=== PATIENT | male | born 1950 | race Hispanic/Latino ===

== ENCOUNTER 2019-04-21 17:07 | Emergency (ER) | payer OTHER, SELFPAY ==
[2019-04-21 18:26] VITALS: BMI 25.7
[2019-04-21] MEDS ORDERED: TDAP Vaccine 0.5 mL Syr IM ONE (18:52)
--- NOTE | 2019-04-21 18:58 | ED PDOC ---
Arrival/HPI - General Historian: Patient - History of Present Illness Narrative History of Present Illness (Text): 18:58 68 y/o male with PMH of HTN presents to the ED for evaluation of fall that occurred 2 hours ago. Pt states he was tripped by neighborhood kids playing street hockey, falling forward on to his face. Pt broke his fall with his outstretched hands. Denies LOC but sustained laceration to left superior orbit and experienced immediate epistaxis. Currently c/o headache. Unknown last tetanus. Pt took 2 Alieve UI ARCHITECT. Denies extremity numbness, weakness, paresthesias, back pain, neck pain, abdominal pain, SOB, palpitations, saddle anesthesia, bowel/bladder incontinence, visual changes, dizziness, or any other associated symptoms. <Patricia Hamilton - Last Filed: 04/23/19 23:56> <Lamin Joaquin - Last Filed: 04/27/19 13:49> - General Chief Complaint: Trauma Time Seen by Provider: 04/21/19 18:30 Past Medical History - Provider Review Nursing Documentation Reviewed: Yes - Cardiac Hx Hypertension: Yes - Psychiatric Hx Substance Use: No - Anesthesia Hx Anesthesia: No <Patricia Hamilton - Last Filed: 04/23/19 23:56> Family/Social History - Physician Review Nursing Documentation Reviewed: Yes Family/Social History: No Known Family HX Smoking Status: Never Smoked Hx Alcohol Use: No Hx Substance Use: No <Patricia Hamilton - Last Filed: 04/23/19 23:56> Allergies/Home Meds <Patricia Hamilton - Last Filed: 04/23/19 23:56> <Lamin Joaquin - Last Filed: 04/27/19 13:49> Allergies/Adverse Reactions: Allergies No Known Allergies Allergy (Verified 04/21/19 18:26) Physical Exam Vital Signs Reviewed: Yes Temperature: Afebrile Blood Pressure: Normal Pulse: Regular Respiratory Rate: Normal Appearance: Positive for: Well-Appearing, Non-Toxic, Comfortable Pain Distress: None Mental Status: Positive for: Alert and Oriented X 3 - Systems Exam Head: Present: Normocephalic, Laceration (4cm laceration to left superior orbit, no eye involvement, active bleeding, no eye involvement) Pupils: Present: PERRL Extroacular Muscles: Present: EOMI Conjunctiva: Present: Normal Mouth: Present: Moist Mucous Membranes Nose (External): Present: Abrasion (bridge of nose) Nose (Internal): Present: No Active Bleeding, Other (dried blood bilateral nares). No: Septal Hematoma Neck: Present: Normal Range of Motion Respiratory/Chest: Present: Clear to Auscultation, Good Air Exchange, Tender to Palpation (sternum, left anterior ribs). No: Respiratory Distress, Accessory Muscle Use Cardiovascular: Present: Regular Rate and Rhythm, Normal S1, S2 Abdomen: No: Tenderness, Peritoneal Signs Back: Present: Normal Inspection Upper Extremity: Present: Normal ROM, NORMAL PULSES, Tenderness (bilateral dorsal wrists; no snuffbox tenderness), Neurovascularly Intact, Capillary Refill < 2s, Other (ecchymosis to bilateral dorsal wrists and proximal palms). No: Temperature Abnormalties, Deformity Lower Extremity: Present: Normal Inspection. No: Tenderness Neurological: Present: GCS=15, Speech Normal, Normal Sensory Function, Gait Normal Skin: Present: Warm, Dry, Normal Color. No: Rashes Psychiatric: Present: Alert, Oriented x 3, Normal Insight, Normal Concentration, Normal Affect, Normal Mood <Patricia Hamilton - Last Filed: 04/23/19 23:56> Vital Signs Temp Pulse Resp BP Pulse Ox 04/21/19 23:40 61 18 120/70 98 04/21/19 19:04 98.2 F 64 18 130/74 98 <Lamin Joaquin - Last Filed: 04/27/19 13:49> Medical Decision Making ED Course and Treatment: Patient was originally thought to have eloped ED. 18:20 Patient found to have returned to ED. States he had to go home because the power was off and now has returned for evaluation. Initial Plan: * CT Head * CT Maxillofacial * CT Cervical Spine * TDaP * Wound cleaning * Wound repair * Wound dressing * Keflex 18:30 Patient refusing pain medication. Patient adamantly refusing Cervical Collar. States "nothing in my neck is broken". Aggressively twisting head back and forth. Pt has full ROM. Advised that excessive movement in a cervical spine injury can cause paralysis and . Pt continues to refuse collar. CT imaging shows nasal bone fracture, otherwise negative for acute pathology. Rib and right wrist negative for fracture. Left wrist XR shows avulsion fracture. Wound irrigated thoroughly by denture laboratory technician. Left superior orbital laceration closed with 7 5-0 nylon sutures in sterile fashion after local anesthesia with 1% lidocaine. Pt tolerated well without complication. Wound edges well aligned and hemostasis achieved. Instructed to return in 7 days for suture removal. Treated with keflex, first dose here. Wound dressed with bacitracin and sterile dressing by nursing. 23:00 Pt eloped from ED again. Returned approximately 25 minutes later, states he left to smoke a cigarette. Pt placed in left volar wrist splint by denture laboratory technician Paulo. Neurovascular exam remains unchanged after splint. Advised orthopedic, ENT, and PMD followup. Pt very well appearing, requesting discharge home. Diagnostic testing results and plan of care discussed with patient. Strict instructions given regarding prescription use, importance of followup, and signs/symptoms to return to ER including worsening pain, numbness, weakness, paresthesias, or any other new/worsening symptoms. Pt verbalized understanding of discussion. Patient is A&Ox3, ambulating with steady gait, with vital signs stable for discharge. - RAD Interpretation Narrative RAD Interpretations (Text): 04/21/19 19:51 CT Head: FINDINGS: BRAIN: No acute intraparenchymal hemorrhage. No mass lesion. No CT evidence for acute territorial infarct. No midline shift or extra-axial collections. There is minimal periventricular white matter ischemic change. VENTRICLES: No hydrocephalus. ORBITS: The orbits are unremarkable. SINUSES AND MASTOIDS: The paranasal sinuses and mastoid air cells are clear. BONES: No fracture. SOFT TISSUES: Unremarkable. IMPRESSION: No acute intracranial abnormality.Minimal periventricular white matter ischemic change. Electronically signed on April 21, 2019 7:43:22 PM EDT by: Azam Urbina M.D., Certified by [facility], Diagnostic Radiology 20:[address]: FINDINGS: BONES: An oblique fracture is seen in the upper nasal septum. There is slight deviation of the anterior fracture fragment to the right. The mandible is intact. SOFT TISSUES: The soft tissues are unremarkable. SINUSES: A 1.2 cm mucous retention cyst or polyp is seen in the anterior-superior left maxillary sinus. The remaining sinuses are clear. Incidental note is made of anthony bullosa in the left middle nasal turbinate; a normal variant finding. ORBITS: The orbits are normal. No retrobulbar hematoma or mass. IMPRESSION: Fracture in the upper nasal septum identified best in the coronal reconstructed images. 1.2 cm mucous retention cyst or polyp seen in the anterior superior left maxillary sinus. Electronically signed on April 21, 2019 8:28:00 PM EDT by: Semaj Cheema M.D., M.B.A., Certified By [facility] Fellowship Trained MRI and CT Specialist Cervical Spine CT: FINDINGS: ALIGNMENT: Bony alignment is anatomic. DEGENERATIVE CHANGES: No significant canal stenosis or neural foraminal narrowing evident. Moderate disc interspace narrowing is seen at C5-6 and C6-7 consistent with moderate degenerative disc disease. 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 SOFT TISSUES: The prevertebral soft tissues are within normal limits. Atheromatous calcific plaquing is noted within the carotid bulbs bilaterally. BONES: No acute fracture or aggressive appearing osseous lesion. IMPRESSION: No acute cervical spine abnormality. Evidence of moderate degenerative disc disease at C5-6 and C6-7. 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 Atheromatous calcific plaquing seen in the carotid bulbs bilaterally. Electronically signed on April 21, 2019 8:20:18 PM EDT by: eSmaj Cheema M.D., M.B.A., Certified By [facility] Fellowship Trained MRI and CT Specialist Right Wrist XR: FINDINGS: BONES: No acute osseous abnormality. No acute fracture. JOINTS: No dislocation. The carpal bones demonstrate normal alignment. SOFT TISSUES: The soft tissues are unremarkable. IMPRESSION: No acute osseous abnormality. No acute fracture or dislocation. Electronically signed on April 21, 2019 9:26:59 PM EDT by: Semaj Cheema M.D., M.B.A., Certified By [facility] Fellowship Trained MRI and CT Specialist Left Wrist XR: FINDINGS: BONES: There are tiny chip avulsion cortical fracture fragments overlying the dorsal cortex of the distal carpal row seen in the lateral view. These could possibly be arising from the dorsal medial cortex of the triquetrum. JOINTS: No dislocation. The carpal bones demonstrate normal alignment. SOFT TISSUES: There is mild dorsal soft tissue swelling noted over the wrist in the lateral view. IMPRESSION: Tiny chip avulsion cortical fracture fragments overlie the dorsal wrist as described above; possibly arising from the medial triquetrum. Mild dorsal soft tissue swelling is noted over the wrist in the lateral view. Electronically signed on April 21, 2019 9:26:54 PM EDT by: Semaj Cheema M.D., M.B.A., Certified By [facility] Fellowship Trained MRI and CT Specialist Rib XR and PA Chest XR: FINDINGS: LUNGS: The visualized lungs appear essentially clear. PLEURAL SPACES: No pneumothorax evident. No pleural effusions. BONES: No evidence for acute left rib fracture. MISCELLANEOUS: The heart is mildly enlarged. No acute cardiopulmonary abnormality identified. IMPRESSION: 1. The heart is mildly enlarged. 2. No evidence for acute left rib fracture. 3. No acute cardiopulmonary abnormality identified. Electronically signed on April 21, 2019 9:18:11 PM EDT by: Jayme Arauz M.D., Certified by [facility], Diagnostic Radiology Radiology Orders: 04/21/19 18:35 CERVICAL SPINE W/O CONTRAST [CT] Stat HEAD W/O CONTRAST [CT] Stat MAXILLOFACIAL W/O CONTRAST [CT] Stat WRIST, LEFT 3 VIEWS [RAD] Stat WRIST, RIGHT 3 VIEWS [RAD] Stat Floriculture Professor: Radiologist <Patricia Hamilton - Last Filed: 04/23/19 23:56> - RAD Interpretation Radiology Orders: 04/21/19 18:35 CERVICAL SPINE W/O CONTRAST [CT] Stat HEAD W/O CONTRAST [CT] Stat MAXILLOFACIAL W/O CONTRAST [CT] Stat WRIST, LEFT 3 VIEWS [RAD] Stat WRIST, RIGHT 3 VIEWS [RAD] Stat 04/21/19 18:54 RIBS LEFT & PA CHEST [RAD] Stat - Medication Orders Current Medication Orders: Discontinued Medications Bacitracin (Bacitracin) 1 ea TOP ONCE ONE Stop: 04/21/19 21:07 Last Admin: 04/21/19 22:20 Dose: 1 ea Cephalexin Monohydrate (Keflex) 500 mg PO STAT STA; Protocol Stop: 04/21/19 20:37 Last Admin: 04/21/19 22:17 Dose: 500 mg Lidocaine HCl (Lidocaine 1% (20ml)) 10 ml IJ STAT STA Stop: 04/21/19 20:43 Last Admin: 04/21/19 22:20 Dose: 10 ml Tetanus/Reduced Diphtheria/Acell Pertussis (Boostrix Vaccine Inj) 0.5 ml IM .ONCE ONE Stop: 04/21/19 18:53 Last Admin: 04/21/19 22:20 Dose: 0.5 ml Immunization Registry Document 04/21/19 22:20 SS (Rec: 04/21/19 22:20 SS [id number]) [facility]-Date provided 04/21/19 <Lamin Joaquin - Last Filed: 04/27/19 13:49> Procedure: Wound Repair - Consent Obtained Consent obtained: Verbal - Performed by Performed by: Mid-level Provider - Indications Indication(s):: Laceration - Location Location:: Left, Eyebrow Shape:: Linear Dimensions Length cm: 4cm Dimensions width cm: 1cm Depth:: Epidermis - Anesthetic Technique Anesthetic Technique: Local Local/Regional Anesthetic:: Lidocaine 1% - Debris Debris:: None - Irrigated Irrigated with ml of normal saline: 1000 - Complexity Complexity:: Simple (one layer) (7) - Wound repair method Sutures:: # (7), Size (5-0), Type (nylon), Technique (simple interrupted) - Complications Complications: None - Patient tolerated procedure Patient Tolerated Procedure:: Well <Patricia Hamilton - Last Filed: 04/23/19 23:56> - PA / PRECISION DANCER / Resident Statement / has reviewed & agrees with the documentation as recorded. <Lamin Joaquin - Last Filed: 04/27/19 13:49> Disposition/Present on Arrival - Present on Arrival Any Indicators Present on Arrival: No History of DVT/PE: No History of Uncontrolled Diabetes: No Urinary Catheter: No History of Decub. Ulcer: No History Surgical Site Infection Following: None - Disposition Have Diagnosis and Disposition been Completed?: Yes Disposition Time: 21:30 Patient Plan: Discharge <Patricia Hamilton - Last Filed: 04/23/19 23:56> <Lamin Joaquin - Last Filed: 04/27/19 13:49> - Disposition Diagnosis: Wrist fracture, Nasal bone fracture, Laceration, Closed head injury Disposition: HOME/ ROUTINE Condition: IMPROVED Discharge Instructions (ExitCare): Nose Fracture, Wound Care (DC), Closed Head Injury (DC), Laceration Repair With Stitches (DC), Wrist Fracture (DC) Additional Instructions: Keflex every 6 hours for 1 week RETURN IN 7 DAYS FOR SUTURE REMOVAL Keep splint on until orthopedic followup Keep wound clean, dry, and covered for 48 hours After 48 hours you can clean with soap and water, pat dry Followup with ENT tomorrow Followup with orthopedics within 2 days Followup with primary doctor tomorrow Return to ER with any new/worsening symptoms Prescriptions: Cephalexin [Keflex] 500 mg PO QID 7 Days #28 capsule Referrals: Carl Lance DO [Staff Provider] - Follow up with primary Janusz Vences MD [Staff Provider] - Follow up with primary Forms: [facility] (Albanian), WORK NOTE
[2019-04-21 19:04] VITALS: RESP 18; TEMP 98.2; O2SAT 98
[2019-04-21] MEDS ORDERED: Lidocaine 1% Inj (20ml) IJ STA (20:42)
[2019-04-21] MEDS ORDERED: Bacitracin 500 Units/gm Oint Foilpak UD TOP ONE (21:06)
[2019-04-21 23:41] VITALS: BP 120/70; PULSE 61
--- NOTE | 2019-04-22 08:02 | RAD ---
Date of service: 04/21/2019 PROCEDURE: Left Wrist Radiographs. HISTORY: fall COMPARISON: None. TECHNIQUE: 4 views obtained. FINDINGS: BONES: There are several small densities at the deep dorsal wrist soft tissues suspicious for fracture of the triquetrum of indeterminate age. Some of these densities appear well corticated peripherally and therefore may indicate chronic fractures. In some, however, this pattern is less defined and therefore acute chip or avulsion fracture is not excluded related to the triquetrum. Remaining carpal bones appear intact including the navicular bone. No destructive bony lesion identified. JOINTS: No dislocation or subluxation. Limited degenerative changes seen at the basal joint and navicular articulation with trapezius and trapezium as well as the radiocarpal joints. SOFT TISSUES: Normal. OTHER FINDINGS: None. IMPRESSION: Multiple tiny bony fragments in the dorsal wrist soft tissues may reflect tracheal fracture of indeterminate age. Please see discussion above. No additional potential fracture evident. No subluxation or dislocation. Mild changes lateral carpus as per above. Concordant preliminary report from [facility], 04/21/2019, 9:26 p.m..
--- NOTE | 2019-04-22 08:05 | RAD ---
Date of service: 04/21/2019 PROCEDURE: Right Wrist Radiographs. HISTORY: fall COMPARISON: None. TECHNIQUE: 4 views obtained. FINDINGS: BONES: No acute fracture or destructive bony lesion identified. JOINTS: Mild cortical sclerosis appreciated at the trapezius and trapezium articulations with the 2nd and 1st metacarpal bones as well as at the radiocarpal joints. No subluxation or dislocation identified. Incidental degenerative joint changes are advanced at the 1st metacarpal phalangeal joint. SOFT TISSUES: Normal. OTHER FINDINGS: None. IMPRESSION: No acute fracture or dislocation right wrist. Limited degenerative changes are identified at the lateral carpus as per above. Preliminary report provided by Curt, 04/21/2019, 9:26 p.m..
--- NOTE | 2019-04-22 08:08 | RAD ---
Date of service: 04/21/2019 PROCEDURE: Radiographs of the Chest and Left Ribs. HISTORY: fall COMPARISON: None available. TECHNIQUE: Frontal radiograph of the chest and multiple oblique radiographs of the left ribs were obtained. 4 views obtained. FINDINGS: LEFT RIBS: No displaced fracture or focal lesion visualized. However, there is a limited contour deformity of the lateral portion of the left 7th rib without cortical disruption reflecting chronic healed fracture. LUNGS: No acute pulmonary disease appreciable. PLEURA: No pneumothorax or pleural fluid. CARDIOVASCULAR: Normal cardiac size. No pulmonary vascular congestion. No aortic atherosclerotic calcification present OTHER FINDINGS: Incidental bone infarct or enchondroma proximal diametaphysis right humerus IMPRESSION: Unremarkable radiographs of the chest and left ribs. No acute left rib fracture. Chronic healed fracture left 7th rib laterally. Incidental bone infarct or enchondroma proximal diametaphysis right humerus. Discordant preliminary report from [facility] regarding chronic left 7th rib fracture, 04/21/2019, 9:18 p.m..
--- NOTE | 2019-04-22 09:47 | CT ---
Date of service: 04/21/2019 PROCEDURE: CT HEAD WITHOUT CONTRAST. HISTORY: fall, laceration to left superior orbit COMPARISON: None available. TECHNIQUE: Axial computed tomography images were obtained through the head/brain without intravenous contrast. Radiation dose: Total exam DLP = 1160.01 mGy-cm. This CT exam was performed using one or more of the following dose reduction techniques: Automated exposure control, adjustment of the mA and/or kV according to patient size, and/or use of iterative reconstruction technique. FINDINGS: HEMORRHAGE: No intracranial hemorrhage. BRAIN: Good corticomedullary differentiation is seen. Proportional, diffuse expansion of the ventriculosulcal and cisternal spaces is appreciated with white matter lucency compatible with diffuse cerebral atrophy and chronic microangiopathy. The pattern is age appropriate. No suspicious extra-axial fluid collection is identified and the midline brain anatomy appears grossly nonfocal as imaged. There is no mass effect throughout. VENTRICLES: Unremarkable. No hydrocephalus. CALVARIUM: Unremarkable. PARANASAL SINUSES: Unremarkable as visualized. No significant inflammatory changes. MASTOID AIR CELLS: Unremarkable as visualized. No inflammatory changes. OTHER FINDINGS: None. IMPRESSION: No definite acute intracranial findings. Age related neuro degenerative changes are age-appropriate. Concordant preliminary report from [facility], 04/21/2019, 7:43 p.m..
--- NOTE | 2019-04-22 10:20 | CT ---
Date of service: 04/21/2019 PROCEDURE: CT Cervical Spine without contrast HISTORY: fall COMPARISON: None available. TECHNIQUE: Axial computed tomography images were obtained of the cervical spine without the use of intravenous contrast. Coronal and sagittal reformatted images were created and reviewed. Radiation dose: Total exam DLP = 562.66 mGy-cm. This CT exam was performed using one or more of the following dose reduction techniques: Automated exposure control, adjustment of the mA and/or kV according to patient size, and/or use of iterative reconstruction technique. FINDINGS: VERTEBRAE: There is a mild reversal of cervical curvature without fracture appreciated throughout. A degenerative spondylolisthesis at C3-4 is identified with C3 slightly anterior to C4 due to marked facet arthropathy, particularly at the right facet joint. No additional spondylolisthesis. No destructive bony lesion appreciated. The odontoid process appears intact. Degenerative changes seen the C1-2 articulation. Craniocervical junction appears intact grossly. Prevertebral and paraspinal soft tissues appear grossly nonfocal. Emphysematous change are identified in the visualized bilateral pulmonary apices. DISCS/SPINAL CANAL/NEURAL FORAMINA: No significant stenosis identified at C2-3. At C3-4, grade 1 spondylolisthesis identified without significant central canal stenosis. Limited posterior osteophytes off upper endplate C4. To abut the ventral cord. Moderate right degenerative neural foraminal stenosis with none appreciated at the left. Osteophyte development is greater the right than left facet joint with mild bilateral uncovertebral joint arthropathy also present. At C4-5, limited posterior disc osteophyte complex is appreciate without significant central canal stenosis. Moderate degenerative right neural foraminal stenosis identified with none at the left. At C5-6, is appreciate without significant central stenosis. Moderate to severe bilateral neural foraminal stenoses are identified slightly greater the right than left. At C6-7, severe right and [id number] left degenerative neural foraminal stenoses are identified with mild central stenosis caused by posterior disc osteophyte complex. At C7-T1, no significant stenosis is encountered throughout. OTHER FINDINGS: None. IMPRESSION: 1. No acute fracture identified throughout the cervical spine. 2. Grade 1 degenerative spondylolisthesis C3-4 without significant central stenosis. Moderate right but no left degenerative neural foraminal stenosis is appreciated. 3. Multilevel degenerative neural foraminal stenoses are identified seen worst at the C6-7 level where severe right and [id number] left neural foraminal stenoses are encountered. 4. No gross disc herniation appreciable. 5. Incidental bilateral apical pulmonary emphysema. Preliminary report provided by Curt, 04/21/2019, 8:20 p.m..
--- NOTE | 2019-04-22 10:23 | CT ---
Date of service: 04/21/2019 PROCEDURE: CT MAXILLOFACIAL BONES WITHOUT CONTRAST HISTORY: fall, laceration to left superior orbit, epistaxis COMPARISON: None available. TECHNIQUE: Contiguous axial CT images of the maxillofacial bones were obtained. Coronal and sagittal reformats were generated. Radiation dose: Total exam DLP = 874.4 mGy-cm. This CT exam was performed using one or more of the following dose reduction techniques: Automated exposure control, adjustment of the mA and/or kV according to patient size, and/or use of iterative reconstruction technique. FINDINGS: NASAL BONES: Unremarkable. ORBITS: Postseptal findings the bilateral orbits with right preseptal soft tissues unremarkable. Left supraorbital soft tissue edema appears [id number] extends minimally into the left paranasal soft tissues somewhat. No definitive retained radiodense foreign body appreciable or emphysematous soft tissue change. PARANASAL SINUSES/ MASTOIDS: Clear. MAXILLA: Unremarkable. MANDIBLE/ TEMPOROMANDIBULAR JOINTS: Unremarkable. SKULL BASE: Unremarkable. TEMPORAL BONES: Middle ears and mastoid grossly unremarkable. OTHER FINDINGS: None. IMPRESSION: [id number] left supraorbital soft tissue edema with remainder of both orbits are otherwise unremarkable. No fracture of the facial bones is appreciated bilaterally.
== END 2019-04-21 23:41 | disposition home or self-care (01) ==
LOC: ED 17:07
DX: S01.112A Laceration without foreign body of left eyelid and periocular area, initial encounter (principal); S02.2XXA Fracture of nasal bones, initial encounter for closed fracture; S62.102A Fracture of unspecified carpal bone, left wrist, initial encounter for closed fracture; W01.0XXA Fall on same level from slipping, tripping and stumbling without subsequent striking against object, initial encounter; Y92.410 Unspecified street and highway as the place of occurrence of the external cause; Z23 Encounter for immunization